=== PATIENT | male | born 1950 | race Caucasian/White ===

== ENCOUNTER 2024-04-04 09:36 | Outpatient (CLI) | payer MEDICARE, BC ==
[~2024-04-04 09:36] MED LIST: ASPI-612 PO; IBUP-24 PO; LOSA-415 PO
== END 2024-04-04 23:59 | disposition home or self-care (01) ==
LOC: MRI 09:36
PROVIDERS: ATTEND Pediatrics Sports Medicine
DX: M19.011 Primary osteoarthritis, right shoulder (principal); M25.511 Pain in right shoulder; R29.898 Other symptoms and signs involving the musculoskeletal system; M75.51 Bursitis of right shoulder
CPT/HCPCS: 73221